=== PATIENT | male | born 1990 | race Caucasian/White ===

== ENCOUNTER 2024-09-04 14:51 | Emergency (ER) | payer OTHER, BC, SELFPAY ==
--- NOTE | 2024-09-04 15:00 | ED.GENADULT ---
HPI - General Adult General Chief complaint: Burn/Smoke Inhalation Stated complaint: Burn on Right Arm Time Seen by Provider: 09/04/24 15:02 Source: patient Mode of arrival: ambulatory Limitations: no limitations History of Present Illness HPI narrative: 34 y/o male presented for c/o redness and warmth surrounding a burn which he sustained to the right wrist 3 days ago. States he burned the wrist on a hot piece of metal at work. He cleansed the site after work. Yesterday the blister ruptured and he has since removed the extra skin. Unsure of last tetanus. Denies decreased ROM, numbness, tingling or weakness to the hand. Related Data Allergies Allergy/AdvReac Type Severity Reaction Status Date / Time No Known Allergies Allergy Verified 09/04/24 15:06 Review of Systems Review of Systems: CONSTITUTIONAL: Denies body aches, fever, chills, or sweats. EYES: Denies visual changes, redness, or discharge. ENT: Denies rhinorrhea, congestion CARDIOVASCULAR: Denies chest pain, palpitations, or edema. RESPIRATORY: Denies cough or dyspnea. SKIN: reports burn right wrist MUSCULOSKELETAL: Denies back pain, joint pain, or myalgia. NEUROLOGIC: Denies numbness, tingling, or weakness. PMFSH Comments At time of signature, I have reviewed and agree with nursing past medical, surgical, social and family history unless otherwise noted. Please see nursing chart for further information. There is no relevant family history pertinent to the presenting complaint Exam Narrative: GENERAL: Well-appearing ENT: Mucous membranes moist. Oropharynx without edema, erythema or lesions. NECK: Supple. No lymphadenopathy CHEST: Clear to auscultation. HEART: Regular rate and rhythm. SKIN: Warm, dry. Right wrist volar aspect with 2cm x0.5cm wound c/w reported burn, wound bed yellow in color, dry no drainage, mild surrounding erythema, warmth, and mild swelling extending 7cm. CMS intact. NEURO: Alert and oriented x3. Course Course Emergency Course: Patient is aware of diagnosis, understands and agrees to treatment plan. Anticipatory guidance given. Patient agrees to follow-up as directed and is aware of reasons to seek care at the emergency department. Portions of this record may have been created with voice recognition software Level of Care: Express Care Visit Vital Signs Vital signs: Reviewed Medical Decision Making MDM Narrative Medical decision making narrative: Discussed physical exam findings, mild cellulitis surrounding the burn to right volar wrist. Rx abx Tetanus updated today. Advised supportive measures and signs/symptoms to go to the ER. Pt is appropriate for outpt treatment and f/u. Differential Diagnosis Differential Diagnosis: Burn, cellulitis, abrasion, avulsion Discharge Plan Discharge Clinical Impression: Cellulitis Patient Disposition: Home, Self-Care Condition: Stable Instructions: Antibiotic Form, Cellulitis (ED) Additional Instructions: Keep the area clean and dry - cleanse with warm water and mild soap and allow to fully dry. Ok to apply neosporin to the site Keep it open to air (no bandages unless draining). Tetanus updated today Take the antibiotic as directed. Watch for worsening symptoms including pain, redness, swelling, streaking, pus/drainage, fever. Go to the ER with any of these symptoms or concerns. Follow up with primary care provider in 1 week for wound re-check Patient Language: Georgian Prescriptions: New cephalexin 500 mg capsule 500 mg PO Q8H 7 Days Qty: 21 0RF Follow-up/Referrals: PHYSICIAN,DIRECTOR OF PRODUCT DESIGN [Primary Care Provider] - Time of Disposition: 15:16
[2024-09-04 15:04] VITALS: BP 143/95; PULSE 83; RESP 16; TEMP 36.1; O2SAT 98
[2024-09-04] MEDS: TETANUS,DIPHTHERIA,AC PERTUSSIS ADULT (0.5 ML) BOOSTRIX IM (15:14)
--- OUTSIDE RECORDS SUMMARY | 2024-09-04 16:10 | XMS_ITS | Encounter Summary ---
Author Organization [facility] Address [address] [place] [address] Care Team Providers Care Car Sander Name Role Phone Nikolay Lockhart MD Primary Care Provider + [phone] Vanessa Myers MD Primary Care Provider Nikolay Lockhart MD Primary Care Provider + [phone] Encounter Details Date Type Department Care Team (Late Contact Info) Description 09/10/1992 Historical Encounter Global Cj Rufino Social History Tobacco Use Types Packs/Day Years Used Date Smoking Tobacco: Never Assessed Sex and Gender Information Value Date Recorded Sex Assigned at Not on file Gender Identity Not on file Sexual Orientation Not on file documented as of this encounter Plan of Treatment Not on file documented as of this encounter Visit Diagnoses Not on filedocumented in this encounter Additional Health Concerns Infection Onset Date Last Indicated Resolved Time MRSA 05/18/2012 05/18/2012 Covid-19 (rule out) 03/06/2021 03/06/2021 03/06/20 21 5:16 AM EDT Covid-19 (confirmed) 03/06/2021 03/06/2021 021 10:12 PM EST documented as of this encounter Care Teams Car Sander Relationship Specialty Start Date End Date Nikolay Lockhart MD [address] [place] [address] PCP - General Family Medicine 11/27/10 05/15/12 Vanessa Myers MD [address] [place] [phone] (Work) PCP - General Infectious Diseases 05/16/12 07/17/12 Nikolay Lockhart MD [address] [place] [address] PCP - General Family Medicine 07/18/12 documented as of this encounter
--- OUTSIDE RECORDS SUMMARY | 2024-09-04 16:10 | XMS_ITS | Encounter Summary ---
Author Organization [facility] Address [address] [facility] [address] [place] [address] Care Team Providers Care Brazer Furnace Name Role Phone Nikolay Lockhart MD Primary Care Provider + [phone] Vanessa Myers MD Primary Care Provider Nikolay Lockhart MD Primary Care Provider + [phone] Encounter Details Date Type Department Care Team (Late Contact Info) Description 11/01/2004 Historical Encounter Global Romulo Emanuel MD Social History Tobacco Use Types Packs/Day Years [...] documented as of this encounter Care Teams Brazer Furnace Relationship Specialty Start Date End Date Nikolay Lockhart MD [address] [place] [address] [place] [address] PCP - General Family Medicine 11/27/10 05/15/12 Vanessa Myers MD [address] [place] [address] PCP - General Infectious Diseases 05/16/12 07/17/12 Nikolay Lockhart MD [address] [facility] [place] [address] PCP - General Family Medicine 07/18/12 documented as of this encounter
--- OUTSIDE RECORDS SUMMARY | 2024-09-04 16:10 | XMS_ITS | Encounter Summary ---
Author Organization [facility] Address [address] [place] [address] Care Team Providers Care Scientific Specialist Name Role Phone Nikolay Lockhart MD Primary Care Provider [phone] Reason for Visit * Reason Onset Date Comments Referral Status 08/14/2012 Encounter Details Date Type Department Care Team (Late st Contact Info) Description 08/14/2012 Telephone [facility] [address] [place] [address] Debra Avendano LPN Referral Status Social History Tobacco Use Types Packs/Day Years Used Date Smoking Tobacco: Every Day Cigarettes Smokeless Tobacco: Current Snuff Alcohol Use Standard Drinks/Week Comments Yes 0 (1 standard drink = 0.6 oz pur e alcohol) Sex and Gender Information Value Date Recorded Sex Assigned at Not on file Gender Identity Not on file Sexual Orientation Not on file documented as of this encounter Miscellaneous Notes * Telephone Encounter - Debra Avendano - 08/14/2012 1:31 PM EST Spoke with Dr. Myers's office. Pt. Has a follow up scheduled for September. Design Release Engineer said she would have Dr. Myers look at Bone scan and see if she wanted to do anything different. Patient's motherinformed of information. Will call back tomorrow to see if appt. Has been moved up. documented in this encounter Plan of Treatment Not on file documented as of this encounter Visit Diagnoses Not on filedocumented in this encounter Additional Health Concerns Infection Onset Date Last Indicated Resolved Time MRSA 05/18/2012 05/18/2012 Covid-19 (rule out) 03/06/2021 03/06/2021 03/06/20 21 5:16 AM EDT Covid-19 (confirmed) 03/06/2021 03/06/2021 021 10:12 PM EST documented as of this encounter Care Teams Scientific Specialist Relationship Specialty Start Date End Date Nikolay Lockhart MD [address] [place], [place] [id number] PCP - General Family Medicine 07/18/12 documented as of this encounter
--- OUTSIDE RECORDS SUMMARY | 2024-09-04 16:10 | XMS_ITS | Encounter Summary ---
Author Organization [facility] Address [address] [place] [address] Care Team Providers Care Wood Floor Refinisher Name Role Phone Vanessa Myers MD Primary Care Provider [phone] Nikolay Lockhart MD Primary Care Provider [phone] Encounter Details Date Type Department Care Team (Late st Contact Info) Description 06/27/[address] [facility], [facility] [address] [facility] [address] [place] [address] Nellie Smith MA Social History Tobacco Use Types Packs/Day Years [...] encounter Miscellaneous Notes * Telephone Encounter - Nellie Smith - 06/27/2012 1:03 PM EST Left message for patient to inform him he has an appointment with Dr. Pond for tomorrow at 10:55am. documented in this encounter Plan of Treatment Not on file documented as of this encounter Visit Diagnoses Not on filedocumented in this encounter Additional Health Concerns Infection Onset Date Last Indicated Resolved Time MRSA 05/18/2012 05/18/2012 Covid-19 (rule out) 03/06/2021 03/06/2021 03/06/20 21 5:16 AM EDT Covid-19 (confirmed) 03/06/2021 03/06/2021 021 10:12 PM EST documented as of this encounter Care Teams Wood Floor Refinisher Relationship Specialty Start Date End Date Vanessa Myers MD [address] [place] [address] PCP - General Infectious Diseases 05/16/12 07/17/12 Nikolay Lockhart MD [address] [place] [address] PCP - General Family Medicine 07/18/12 documented as of this encounter
--- OUTSIDE RECORDS SUMMARY | 2024-09-04 16:10 | XMS_ITS | Encounter Summary ---
Author Organization [facility] Address [address] [place] [address] Care Team Providers Care Pinsetter Mechanic Automatic Name Role Phone Nikolay Mendiola MD Primary Care Provider [phone] Reason for Visit * Reason Onset Date Comments Phone Advice For Symptoms 03/01/2021 Encounter Details Date Type Department Care Team (Late st Contact Info) Description 03/01/2021 Telephone NIKOLAY MENDIOLA MD [facility] [address] [place] [address] Clint Salinas MA Phone Advice For Symptoms Social History Tobacco Use Types Packs/Day Years Used Date Smoking Tobacco: Former Cigarettes Smokeless Tobacco: Current Snuff, Chew Comments:i can/day x 5 years Alcohol Use Standard Drinks/Week Comments Yes 360 (1 standard drink = 0.6 oz p ure alcohol) once a week Sex and Gender Information Value Date Recorded Sex Assigned at Not on file Gender Identity Not on file Sexual Orientation Not on file documented as of this encounter Miscellaneous Notes * Telephone Encounter - Clint Salinas MA - 03/01/2021 3:58 PM EDT Patients mother informed. * Telephone Encounter - Clint Salinas MA - 03/01/2021 3:31 PM EDT Patients mom called in stating Reginald has been sick for a couple days not with coughing, sore throat, vomiting, SOB. Patient is in [place] working and is asking for something to be sent in to [facility]. documented in this encounter Plan of Treatment Not on file documented as of this encounter Visit Diagnoses Diagnosis Lab test positive for detection of COVID-19 virus- Primary Acute sinusitis, recurrence not specified, unspecified location documented in this encounter Additional Health Concerns Infection Onset Date Last Indicated Resolved Time MRSA 05/18/2012 05/18/2012 Covid-19 (rule out) 03/06/2021 03/06/2021 03/06/20 21 5:16 AM EDT Covid-19 (confirmed) 03/06/2021 03/06/2021 021 10:12 PM EST documented as of this encounter Care Teams Pinsetter Mechanic Automatic Relationship Specialty Start Date End Date Nikolay Mendiola MD [address] [facility] [place] [address] PCP - General Family Medicine 07/18/12 documented as of this encounter
--- OUTSIDE RECORDS SUMMARY | 2024-09-04 16:10 | XMS_ITS | Encounter Summary ---
Author Organization [facility] Address [address] [place] [address] Care Team Providers Care Investment Broker Name Role Phone Nikolay Lockhart MD Primary Care Provider [phone] Reason for Visit * Reason Onset Date Comments Shoulder Pain 08/10/2012 Encounter Details Date Type Department Care Team (Late st Contact Info) Description 08/10/2012 Telephone [facility] [address] [place] [address] Nikolay Lockhart MD [address] [facility] [place] [address] Shoulder Pain Social History Tobacco Use Types Packs/Day Years [...] on file documented as of this encounter Results * NM Bone Scan 3 Phase (08/10/2012 1:52 PM EST) Anatomical Region Laterality Modality NM 08/10/2012 1:53 PM EST Addenda Addendum by Peri Tobias on 08/14/2012 9:50 AM EST Addendum: Addendum to verify receipt of document. Receipt of report was confirmed by Patricia at the office of Dr. Lockhart at approximately 9:47 a.m. on 08/13/2012. Patricia informed to give report to the doctor. llc Addendum by Peri Tobias on 08/11/2012 8:35 AM EST Addendum: Addendum to verify receipt of document. Report was sent to the office of Dr. Lockhart at approximately 8:31 a.m. on 08/11/2012. Receipt will be confirmed on the next day. llc Impressions 08/11/2012 8:44 AM EST : Positive 3 phase bone scan right shoulder as described. Narrative 08/11/2012 8:44 AM EST Shoulder injury which resulted in shoulder surgery January 15, 2012. Pins removed and 2 weeks later infection. History of MRSA right shoulder. COMPARISON: None TECHNIQUE: 24.7 mCi of TECH 99m HDP given IV. Anterior flow images obtained of upper chest/right shoulder. Blood pool and static delayed 4 views obtained of the upper chest/right shoulder. Left arm injection. FINDINGS: Flow images demonstrate subtle increased activity/avidity right shoulder compared with left shoulder. Blood pool images show increased activity/avidity associated with right shoulder compared with left. Static delayed images demonstrate focus of increased activity/avidity noted within distal right clavicle/acromium, right humeral head and right glenoid fossa. Procedure Note Peri Tobias - 08/14/2012 Shoulder injury which resulted in shoulder surgery January 15, 2012. Pinsremoved and 2 weeks later infection. History of MRSA right shoulder. COMPARISON: None TECHNIQUE: 24.7 mCi of TECH 99m HDP given IV. Anterior flow imagesobtained of upper chest/right shoulder. Blood pool and static delayed 4 viewsobtained of the upper chest/right shoulder. Left arm injection. FINDINGS: Flow images demonstrate subtle increased activity/avidity rightshoulder compared with left shoulder. Blood pool images show increasedactivity/avidity associated with right shoulder compared with left. Static delayed images demonstrate focus of increased activity/avidity noted within distalright clavicle/acromium, right humeral head and right glenoid fossa. IMPRESSION: Positive 3 phase bone scan right shoulder as described. Nikolay Lockhart MD IMG NM ORDERABLES documented in this encounter Visit Diagnoses Diagnosis Cellulitis and abscess of upper arm and forearm- Primary documented in this encounter Additional Health Concerns Infection Onset Date Last Indicated Resolved Time MRSA 05/18/2012 05/18/2012 Covid-19 (rule out) 03/06/2021 03/06/2021 03/06/20 21 5:16 AM EDT Covid-19 (confirmed) 03/06/2021 03/06/2021 021 10:12 PM EST documented as of this encounter Care Teams Investment Broker Relationship Specialty Start Date End Date Nikolay Lockhart MD [address] [facility] [place] [address] PCP - General Family Medicine 07/18/12 documented as of this encounter
--- OUTSIDE RECORDS SUMMARY | 2024-09-04 16:10 | XMS_ITS | Encounter Summary ---
Author Organization [facility] Address [address] [place] [address] Care Team Providers Care Client Technical Specialist Name Role Phone Vanessa Myers MD Primary Care Provider Nikolay Lockhart MD Primary Care Provider [phone] Encounter Details Date Type Department Care Team (Late st Contact Info) Description 06/14/2012 Telephone [facility], [facility] [address] [facility] [address] [place] [address] Nellie Smith MA Social History [...] * Telephone Encounter - Nellie Smith - 06/14/2012 2:14 PM EST Let patient know that refill was sent to the pharmacy and to keep his appointment next week to discuss further treatment/refills. * Telephone Encounter - Laura King NP - 06/14/2012 1:58 PM EST Refill sent to pharmacy. He will need to keep appt next Wed to discuss further treatment/refills. * Telephone Encounter - Nellie Smith - 06/14/2012 1:48 PM EST Patient states he is getting low on Bactrim and wants a refill sent to [facility]. documented in this encounter Plan of Treatment Not on file documented as of this encounter Visit Diagnoses Not on filedocumented in this encounter Additional Health Concerns Infection Onset Date Last Indicated Resolved Time MRSA 05/18/2012 05/18/2012 Covid-19 (rule out) 03/06/2021 03/06/2021 03/06/20 21 5:16 AM EDT Covid-19 (confirmed) 03/06/2021 03/06/2021 021 10:12 PM EST documented as of this encounter Care Teams Client Technical Specialist Relationship Specialty Start Date End Date Vanessa Myers MD [address] [place] [address] PCP - General Infectious Diseases 05/16/12 07/17/12 Nikolay Lockhart MD [address] [facility] [place] [address] PCP - General Family Medicine 07/18/12 documented as of this encounter
--- OUTSIDE RECORDS SUMMARY | 2024-09-04 16:10 | XMS_ITS | Encounter Summary ---
Author Organization [facility] Address [address] [place] [address] Care Team Providers Care Engine Cleaner Name Role Phone Vanessa Myers MD Primary Care Provider Nikolay Lockhart MD Primary Care Provider [phone] Encounter Details Date Type Department Care Team (Late st Contact Info) Description 06/01/2012 Telephone [facility], [facility] [address] [facility] [address] [place] [address] Nellie Smith MA Social History [...] * Telephone Encounter - Nellie Smith - 06/01/2012 2:47 PM EST Notified patient refill for Bactrim was sent to the pharmacy. * Telephone Encounter - Laura King NP - 06/01/2012 12:28 PM EST Refill sent to pharmacy. If fever, chills or worsening of symptoms, will need to go to ER. * Telephone Encounter - Nellie Smith - 06/01/2012 11:36 AM EST Patient is requesting a refill on bactrim to be sent [facility]. documented in this encounter Plan of Treatment Not on file documented as of this encounter Visit Diagnoses Not on filedocumented in this encounter Additional Health Concerns Infection Onset Date Last Indicated Resolved Time MRSA 05/18/2012 05/18/2012 Covid-19 (rule out) 03/06/2021 03/06/2021 03/06/20 21 5:16 AM EDT Covid-19 (confirmed) 03/06/2021 03/06/2021 021 10:12 PM EST documented as of this encounter Care Teams Engine Cleaner Relationship Specialty Start Date End Date Vanessa Myers MD [address] [place] [id number] PCP - General Infectious Diseases 05/16/12 07/17/12 Nikolay Lockhart MD [address] [facility] [place] [address] PCP - General Family Medicine 07/18/12 documented as of this encounter
--- OUTSIDE RECORDS SUMMARY | 2024-09-04 16:10 | XMS_ITS | Encounter Summary ---
Author Organization [facility] Address [address] [place] [address] Care Team Providers Care Tender Coordinator Name Role Phone Nikolay Lockhart MD Primary Care Provider + [phone] Vanessa Myers MD Primary Care Provider Nikolay Lockhart MD Primary Care Provider + [phone] Encounter Details Date Type Department Care Team (Late st Contact Info) Description 10/22/2004 Historical Encounter Global Donavan Hinton MD [facility] Emergency Dept. [address] [place], [place] [id number] Social History Tobacco Use Types Packs/Day Years [...] documented as of this encounter Care Teams Tender Coordinator Relationship Specialty Start Date End Date Nikolay Lockhart MD [address] [facility] [place] [address] PCP - General Family Medicine 11/27/10 05/15/12 Vanessa Myers MD [address] [place], [place] [address] PCP - General Infectious Diseases 05/16/12 07/17/12 Nikolay Lockhart MD [address] [facility] [place] [address] PCP - General Family Medicine 07/18/12 documented as of this encounter
--- OUTSIDE RECORDS SUMMARY | 2024-09-04 16:10 | XMS_ITS | Encounter Summary ---
Author Organization [facility] Address [address] [place] [address] Care Team Providers Care Tool Turret Lathe Set Up Operator Name Role Phone Nikolay Lockhart MD Primary Care Provider [phone] Reason for Visit * Reason Onset Date Comments Results - Test 07/30/2012 Encounter Details Date Type Department Care Team (Late st Contact Info) Description 07/30/2012 Telephone [facility] [address] [place] [address] Nikolay Lockhart MD [address] [facility] [place] [address] Results - Test Social History Tobacco Use Types Packs/Day Years [...] encounter Miscellaneous Notes * Telephone Encounter - Nikolay Lockhart - 07/30/2012 12:29 PM EST ordered * Telephone Encounter - Kia Anaya - 07/30/2012 9:31 AM EST Patient was under the impression our office was ordering some type of scan to check to see if the infection has gone to the bone. Please order in EPIC. He has been waiting since office visit here last Monday. Thanks documented in this encounter Plan of Treatment Not on file documented as of this encounter Visit Diagnoses Diagnosis Osteomyelitis of right shoulder region- Primary Unspecified osteomyelitis, shoulder region documented in this encounter Additional Health Concerns Infection Onset Date Last Indicated Resolved Time MRSA 05/18/2012 05/18/2012 Covid-19 (rule out) 03/06/2021 03/06/2021 03/06/20 21 5:16 AM EDT Covid-19 (confirmed) 03/06/2021 03/06/2021 021 10:12 PM EST documented as of this encounter Care Teams Tool Turret Lathe Set Up Operator Relationship Specialty Start Date End Date Nikolay Lockhart MD [address] [facility] [place] [address] PCP - General Family Medicine 07/18/12 documented as of this encounter
--- OUTSIDE RECORDS SUMMARY | 2024-09-04 16:11 | XMS_ITS | Data Portability ---
Author Organization [facility] [employer], [facility] hospital - New Address [address], [place] [address] Assessment No assessment recorded. Plan of Treatment Reminders Order Date Submit Date Provider Last Modified By Organization Details Last Modified Time Details Appointments None recorde d. Lab drug screen, urine 024 12/19/19 24 [email or web address] [employer], [id number], [place], [address], 4 09:46:44 Referral None recorde d. Procedures None recorde d. Surgeries None recorde d. Imaging None recorde d. Medication Orders None recorde d. Patient TargetsNo targets recorded. Patient InstructionsNo instructions recorded. Reason for Referral None Reported. Medical Equipment None Reported. Medications Name Sig Start Date Stop Date Status Note LastModified by Organization Details LastModified Time azithromycin 250 mg tablet USE DIRECTED active Not Available Not Available No t Available Vitals None Recorded Social History None recorded. Functional Status None recorded. Mental Status None recorded. Family History Nothing Reported. Medical History No medical history recorded. Past Encounters Encounter ID Performer Location Encounter Start Date Encounter Closed Date Diagnosis/Indication Diagnosis SNOMED-CT Code Diagnosis ICD10 Code Diagnosis Note [id number] MYRA Vance [address] [facility] [address] [place] [address] 12/19/2023 09:30:25 12/19/2023 10:36:01 Drug of abuse screen 94192164 Z02.83 Health Concerns Section Related Observation LastModified by Organization Detai ls LastModified Time None Recorded Concern Status LastModified by Organization Details LastModified Time None Recorded Advance Directives Directive None Recorded Payers Encounter Date Sequence Insurance Name Policy Number Policy Patrick Covered Member ID Patrick Member ID Guarantor Name 12/19/2023 [facility] [id number] Reginald Nash
--- OUTSIDE RECORDS SUMMARY | 2024-09-04 16:11 | XMS_ITS | Encounter Summary ---
Author Organization [facility] Address [address] [id number] Care Team Providers Care Putter In Name Role Phone Nikolay Mendiola MD Primary Care Provider [phone] Encounter Details Date Type Department Care Team (Late st Contact Info) Description 07/08/2015 Telephone NIKOLAY MENDIOLA MD [facility] [address] [place] [address] Dorothy Jay MA [address] [id number] Social History Tobacco Use Types Packs/Day Years Used Date Smoking Tobacco: Former Cigarettes 0.2 5 Smokeless Tobacco: Current Snuff, Chew Comments:i can/day x 5 years Alcohol Use Standard Drinks/Week Comments Yes 360 (1 standard drink = 0.6 oz p ure alcohol) once a week Sex and Gender Information Value Date Recorded Sex Assigned at Not on file Gender Identity Not on file Sexual Orientation Not on file documented as of this encounter Miscellaneous Notes * Telephone Encounter - Dorothy Jay MA - 07/08/2015 11:26 AM EST Pt mother calling requesting rx called to pharmacy d/t pt having left ear pain, sore throat, loss of appetite, fatigue and drainage. documented in this encounter Plan of Treatment Not on file documented as of this encounter Visit Diagnoses Diagnosis Acute sinusitis, recurrence not specified, unspecified location- Primary documented in this encounter Additional Health Concerns Infection Onset Date Last Indicated Resolved Time MRSA 05/18/2012 05/18/2012 Covid-19 (rule out) 03/06/2021 03/06/2021 03/06/20 21 5:16 AM EDT Covid-19 (confirmed) 03/06/2021 03/06/2021 021 10:12 PM EST documented as of this encounter Care Teams Putter In Relationship Specialty Start Date End Date Nikolay Mendiola MD [address] [facility] [place] [address] PCP - General Family Medicine 07/18/12 documented as of this encounter
--- OUTSIDE RECORDS SUMMARY | 2024-09-04 16:11 | XMS_ITS | Encounter Summary ---
Author Organization [facility] Address [address] [place] [address] Care Team Providers Care Telephone Station Repairer Name Role Phone Nikolay Lockhart MD Primary Care Provider Encounter Details Date Type Department Care Team (Late st Contact Info) Description 10/21/2022 Telephone [facility] [address] [place] [address] Carlota Magallon CRT Social History Tobacco Use Types Packs/Day Years Used Date Smoking Tobacco: Former Cigarettes Smokeless Tobacco: Current Snuff, Chew Comments:i can/day x 5 years Alcohol Use Standard Drinks/Week Comments Not Currently 360 (1 standard drink = 0.6 oz p ure alcohol) once a week Sex and Gender Information Value Date Recorded Sex Assigned at Not on file Gender Identity Not on file Sexual Orientation Not on file documented as of this encounter Miscellaneous Notes * Telephone Encounter - Carlota Magallon CRT - 10/21/2022 9:25 AM EDT Called and spoke with patient about the return of his home sleep study equipment. Patient states that he is going to do the test tonight and return tomorrow. documented in this encounter Plan of Treatment Not on file documented as of this encounter Visit Diagnoses Not on filedocumented in this encounter Additional Health Concerns Infection Onset Date Last Indicated Resolved Time MRSA 05/18/2012 05/18/2012 documented as of this encounter Care Teams Telephone Station Repairer Relationship Specialty Start Date End Date Nikolay Lockhart MD [address] [place] [address] PCP - General Family Medicine 07/18/12 documented as of this encounter
--- OUTSIDE RECORDS SUMMARY | 2024-09-04 16:11 | XMS_ITS | Encounter Summary ---
Author Organization [facility] Address [address] [place] [address] Care Team Providers Care Salesperson Terrazzo Tiles Name Role Phone Nikolay Lockhart MD Primary Care Provider [phone] Reason for Visit * Reason Onset Date Comments Sinusitis 10/24/2012 Encounter Details Date Type Department Care Team (Late st Contact Info) Description 10/24/2012 Telephone [facility] [address] [place] [address] Nikolay Lockhart MD [address] [facility] [place] [address] Sinusitis Social History Tobacco Use Types Packs/Day Years [...] encounter Miscellaneous Notes * Telephone Encounter - Kia Anaya - 10/24/2012 10:26 AM EDT Patient requesting medicine for his sinus and allergies. Very congested in head and a lot of sinus drainage ( yellowish). Nothing OTC helping. documented in this encounter Plan of Treatment Not on file documented as of this encounter Visit Diagnoses Diagnosis Sinusitis- Primary Unspecified sinusitis (chronic) documented in this encounter Additional Health Concerns Infection Onset Date Last Indicated Resolved Time MRSA 05/18/2012 05/18/2012 Covid-19 (rule out) 03/06/2021 03/06/2021 03/06/20 21 5:16 AM EDT Covid-19 (confirmed) 03/06/2021 03/06/2021 021 10:12 PM EST documented as of this encounter Care Teams Salesperson Terrazzo Tiles Relationship Specialty Start Date End Date Nikolay Lockhart MD [address] [place] [address] PCP - General Family Medicine 07/18/12 documented as of this encounter
--- OUTSIDE RECORDS SUMMARY | 2024-09-04 16:11 | XMS_ITS | Encounter Summary ---
Author Organization [facility] Address [address] [place] [address] Care Team Providers Care Press Cleaner Name Role Phone Nikolay Lockhart MD Primary Care Provider Encounter Details Date Type Department Care Team (Late st Contact Info) Description 11/14/2012 Orders Only [facility], [facility] [address] [facility] [address] [place] [id number] Vanessa Myers MD [address] [place] [address] MRSA (methicillin resistant Staphylococcus aureus) infection (Primary Dx) Social History Tobacco Use Types Packs/Day Years [...] as of this encounter Visit Diagnoses Diagnosis MRSA (methicillin resistant Staphylococcus aureus) infection- Primary Methicillin resistant Staphylococcus aureus in conditions classified elsewhere and of unspecified site documented in this encounter Additional Health Concerns Infection Onset Date Last Indicated Resolved Time MRSA 05/18/2012 05/18/2012 Covid-19 (rule out) 03/06/2021 03/06/2021 03/06/20 21 5:16 AM EDT Covid-19 (confirmed) 03/06/2021 03/06/2021 021 10:12 PM EST documented as of this encounter Care Teams Press Cleaner Relationship Specialty Start Date End Date Nikolay Lockhart MD [address] [place] [address] PCP - General Family Medicine 07/18/12 documented as of this encounter
--- OUTSIDE RECORDS SUMMARY | 2024-09-04 16:11 | XMS_ITS | Encounter Summary ---
Author Organization [facility] Address [address] [place] [address] Care Team Providers Care Facility Examiner Name Role Phone Nikolay Mendiola MD Primary Care Provider Reason for Visit * Reason Onset Date Comments Medications Refill 10/21/2014 Encounter Details Date Type Department Care Team ([facility] Contact Info) Description 10/21/2014 Telephone NIKOLAY MENDIOLA MD [facility] [address] [place] [address] Norma Caal Medications Refill Social History Tobacco Use Types Packs/Day Years [...] documented as of this encounter Care Teams Facility Examiner Relationship Specialty Start Date End Date Nikolay Mendiola MD [address] [facility] [place] [address] PCP - General Family Medicine 07/18/12 documented as of this encounter
--- OUTSIDE RECORDS SUMMARY | 2024-09-04 16:11 | XMS_ITS | Encounter Summary ---
Author Organization [facility] Address [address] [place] [address] Care Team Providers Care Paperboard Box Maker Name Role Phone Nikolay Lockhart MD Primary Care Provider [phone] Reason for Visit * Reason Onset Date Comments Wound Infection 12/05/2012 Encounter Details Date Type Department Care Team (Late st Contact Info) Description 12/05/2012 Telephone [facility] [address] [place] [address] Nikolay Lockhart MD [address] [place] [address] Wound Infection Social History Tobacco Use Types Packs/Day Years [...] * Telephone Encounter - Nikolay Lockhart - 12/05/2012 4:32 PM EDT Thank you * Telephone Encounter - Kia Anaya - 12/05/2012 4:15 PM EDT Patient saw Dr Pond and 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 Mother wanted to make you aware. documented in this encounter Plan of Treatment Not on file documented as of this encounter Visit Diagnoses Not on filedocumented in this encounter Additional Health Concerns Infection Onset Date Last Indicated Resolved Time MRSA 05/18/2012 05/18/2012 Covid-19 (rule out) 03/06/2021 03/06/2021 03/06/20 21 5:16 AM EDT Covid-19 (confirmed) 03/06/2021 03/06/2021 021 10:12 PM EST documented as of this encounter Care Teams Paperboard Box Maker Relationship Specialty Start Date End Date Nikolay Lockhart MD [address] [place] [address] PCP - General Family Medicine 07/18/12 documented as of this encounter
--- OUTSIDE RECORDS SUMMARY | 2024-09-04 16:11 | XMS_ITS | Encounter Summary ---
Author Organization [facility] Address [address] [place] [address] Care Team Providers Care Project Geophysicist Name Role Phone Nikolay Lockhart MD Primary Care Provider Encounter Details Date Type Department Care Team (Late st Contact Info) Description 08/16/2012 Telephone [facility], [facility] [address] [facility] [address] [place] [address] Nellie Smith MA Social History [...] * Telephone Encounter - Nellie Smith - 08/16/2012 11:13 AM EST Notified patient's mother appointment at [facility] is for August 20 at 9:55am, also let her know they need actual films of MRI. documented in this encounter Plan of Treatment Not on file documented as of this encounter Visit Diagnoses Not on filedocumented in this encounter Additional Health Concerns Infection Onset Date Last Indicated Resolved Time MRSA 05/18/2012 05/18/2012 Covid-19 (rule out) 03/06/2021 03/06/2021 03/06/20 21 5:16 AM EDT Covid-19 (confirmed) 03/06/2021 03/06/2021 021 10:12 PM EST documented as of this encounter Care Teams Project Geophysicist Relationship Specialty Start Date End Date Nikolay Lockhart MD [address] [facility] [place] [address] PCP - General Family Medicine 07/18/12 documented as of this encounter
--- OUTSIDE RECORDS SUMMARY | 2024-09-04 16:11 | XMS_ITS | Encounter Summary ---
Author Organization [facility] Address [address] [place] [address] Care Team Providers Care Lead Systems Developer Name Role Phone Nikolay Lockhart MD Primary Care Provider Reason for Visit * Reason Onset Date Comments Phone Advice For Symptoms 08/21/2012 Encounter Details Date Type Department Care Team (Late st Contact Info) Description 08/21/2012 Telephone [facility] [address] [place] [address] Nikolay Lockhart MD [address] [facility] [place] [address] Phone Advice For Symptoms Social History Tobacco [...] * Telephone Encounter - Nikolay Lockhart - 08/22/2012 12:41 PM EDT OK * Telephone Encounter - Kia Anaya - 08/21/2012 3:09 PM EDT Patient saw Dr Salas at [facility] yesterday and he instructed patient to proceed with surgery with Dr Pond. He explained the procedure in detail and answered all of their questions. Wanting to know if that was ok with Dr Lockhart? documented in this encounter Plan of Treatment Not on file documented as of this encounter Visit Diagnoses Not on filedocumented in this encounter Additional Health Concerns Infection Onset Date Last Indicated Resolved Time MRSA 05/18/2012 05/18/2012 Covid-19 (rule out) 03/06/2021 03/06/2021 03/06/20 21 5:16 AM EDT Covid-19 (confirmed) 03/06/2021 03/06/2021 021 10:12 PM EST documented as of this encounter Care Teams Lead Systems Developer Relationship Specialty Start Date End Date Nikolay Lockhart MD [address] [facility] [address] [place] [address] PCP - General Family Medicine 07/18/12 documented as of this encounter
--- OUTSIDE RECORDS SUMMARY | 2024-09-04 16:11 | XMS_ITS | Encounter Summary ---
Author Organization [facility] Address [address] [facility] [place] [address] Care Team Providers Care Space And Missile Operations Spacelift Name Role Phone Nikolay Lockhart MD Primary Care Provider [phone] Vanessa Myers MD Primary Care Provider [phone] Nikolay Lockhart MD Primary Care Provider + [phone] Encounter Details Date Type Department Care Team ([facility] Contact Info) Description 08/30/1993 Historical Encounter [employer] Rufino Corona Social History Tobacco Use Types Packs/Day Years [...] documented as of this encounter Care Teams Space And Missile Operations Spacelift Relationship Specialty Start Date End Date Nikolay Lockhart MD [address] [facility] [place] [address] PCP - General Family Medicine 11/27/10 05/15/12 Vanessa Myers MD [address] [place] [phone] (Work) PCP - General Infectious Diseases 05/16/12 07/17/12 Nikolay Lockhart MD [address] [facility] [place] [address] PCP - General Family Medicine 07/18/12 documented as of this encounter
--- OUTSIDE RECORDS SUMMARY | 2024-09-04 16:11 | XMS_ITS | Encounter Summary ---
Author Organization [facility] Address [address] [place] [address] Care Team Providers Care Surgical Scrub Tech Name Role Phone Nikolay Mendiola MD Primary Care Provider [phone] Reason for Visit * Reason Onset Date Comments Cold 03/12/2015 Encounter Details Date Type Department Care Team (Late st Contact Info) Description 03/12/2015 Telephone NIKOLAY MENDIOLA MD [facility] [address] [place] [address] Nikolay Mendiola MD [address] [facility] [place] [address] Cold Social History Tobacco Use Types Packs/Day Years [...] encounter Miscellaneous Notes * Telephone Encounter - Shwetha Gee - 03/12/2015 10:19 AM EDT Pt is requesting rx called in d/t uri,symptoms include yellow mucous, congestion, ear pain and coughing. 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
--- OUTSIDE RECORDS SUMMARY | 2024-09-04 16:11 | XMS_ITS | Encounter Summary ---
Author Organization [facility] Address [address] [id number] Care Team Providers Care Bioassayist Name Role Phone Nikolay Mendiola MD Primary Care Provider [phone] Encounter Details Date Type Department Care Team (Late st Contact Info) Description 07/12/2019 Telephone NIKOLAY MENDIOLA MD [facility] [address] [place] [address] Nalini Hull MA [address] [id number] Social History Tobacco Use Types Packs/Day Years [...] encounter Miscellaneous Notes * Telephone Encounter - Nalini Hull MA - 07/12/2019 9:45 AM EST Pt stated he thinks he has pink eye D/T His Daughter was diagnosed with it. Pt would like somethingcalled in to treat this. Both Eyes are getting infected. documented in this encounter Plan of Treatment Not on file documented as of this encounter Visit Diagnoses Diagnosis [place] eye disease of both eyes- Primary documented in this encounter Additional Health Concerns Infection Onset Date Last Indicated Resolved Time MRSA 05/18/2012 05/18/2012 Covid-19 (rule out) 03/06/2021 03/06/2021 03/06/20 21 5:16 AM EDT Covid-19 (confirmed) 03/06/2021 03/06/2021 021 10:12 PM EST documented as of this encounter Care Teams Bioassayist Relationship Specialty Start Date End Date Nikolay Mendiola MD [address] [facility] [place] [address] PCP - General Family Medicine 07/18/12 documented as of this encounter
--- OUTSIDE RECORDS SUMMARY | 2024-09-04 16:11 | XMS_ITS | Encounter Summary ---
Author Organization [facility] Address [address] [place] [address] Care Team Providers Care Carbonation Equipment Operator Name Role Phone Nikolay Lockhart MD Primary Care Provider Reason for Visit * Reason Onset Date Comments Shoulder Injury 01/08/2013 Encounter Details Date Type Department Care Team (Late st Contact Info) Description 01/08/2013 Telephone [facility] [address] [place] [address] Nikolay Lockhart MD [address] [facility] [place] [address] Shoulder Injury Social History Tobacco Use Types Packs/Day Years [...] * Telephone Encounter - Kia Anaya - 01/08/2013 10:13 AM EDT Patient wanted to let you know he is scheduled for surgery next with Dr Briseno. Dr Briseno stated the infection is not all the way into the joint and she will remove quite a bit of bone but his progress looks very promising. documented in this encounter Plan of Treatment Not on file documented as of this encounter Visit Diagnoses Not on filedocumented in this encounter Additional Health Concerns Infection Onset Date Last Indicated Resolved Time MRSA 05/18/2012 05/18/2012 Covid-19 (rule out) 03/06/2021 03/06/2021 03/06/20 21 5:16 AM EDT Covid-19 (confirmed) 03/06/2021 03/06/2021 021 10:12 PM EST documented as of this encounter Care Teams Carbonation Equipment Operator Relationship Specialty Start Date End Date Nikolay Lockhart MD [address] [facility] [place] [address] PCP - General Family Medicine 07/18/12 documented as of this encounter
--- OUTSIDE RECORDS SUMMARY | 2024-09-04 16:11 | XMS_ITS | Encounter Summary ---
Author Organization [facility] Address [address] [place] [address] Care Team Providers Care Lean Six Sigma Black Belt Name Role Phone Nikolay Lockhart MD Primary Care Provider Reason for Visit * Reason Onset Date Comments Sinusitis 08/17/2012 Encounter Details Date Type Department Care Team (Late st Contact Info) Description 08/17/2012 Telephone [facility] [address] [place] [address] Nikolay Lockhart MD [address] [facility] [address] Sinusitis Social History Tobacco Use [...] * Telephone Encounter - Kia Anaya - 08/17/2012 10:53 AM EST Patient is on Bactrim for his infection but has developed horrible congestion in head and a lot of sinus drainage. Please call something in to help. documented in this encounter Plan of Treatment Not on file documented as of this encounter Visit Diagnoses Diagnosis AR (allergic rhinitis)- Primary Allergic rhinitis, cause unspecified documented in this encounter Additional Health Concerns Infection Onset Date Last Indicated Resolved Time MRSA 05/18/2012 05/18/2012 Covid-19 (rule out) 03/06/2021 03/06/2021 03/06/20 21 5:16 AM EDT Covid-19 (confirmed) 03/06/2021 03/06/2021 021 10:12 PM EST documented as of this encounter Care Teams Lean Six Sigma Black Belt Relationship Specialty Start Date End Date Nikolay Lockhart MD [address] [facility] [address] PCP - General Family Medicine 07/18/12 documented as of this encounter
--- OUTSIDE RECORDS SUMMARY | 2024-09-04 16:11 | XMS_ITS | Encounter Summary ---
Author Organization [facility] Address [address] [place] [address] Care Team Providers Care Contract Management Specialist Name Role Phone Nikolay Lockhart MD Primary Care Provider Encounter Details Date Type Department Care Team (Late st Contact Info) Description 05/29/2013 Transcribe Orders Centralized Scheduling [address] [place] [address] Nikolay Lockhart MD [address] [facility] [place] [address] Social History Tobacco Use Types Packs/Day Years [...] documented as of this encounter Care Teams Contract Management Specialist Relationship Specialty Start Date End Date Nikolay Lockhart MD [address] [place] [address] PCP - General Family Medicine 07/18/12 documented as of this encounter
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
--- OUTSIDE RECORDS SUMMARY | 2024-09-04 16:11 | XMS_ITS | Encounter Summary ---
Author Organization [facility] Address [address] [place] [address] Care Team Providers Care Chart Writer Name Role Phone Nikolay Lockhart MD Primary Care Provider [phone] Encounter Details Date Type Department Care Team (Late st Contact Info) Description 10/26/2022 Telephone [facility] [address] [facility] [place] [address] Carlota Magallon CRT Social History [...] Telephone Encounter - Carlota Magallon CRT - 10/26/2022 4:36 PM EDT Called patient with a preliminary report on his home sleep study. documented in this encounter Plan of Treatment Not on file documented as of this encounter Visit Diagnoses Not on filedocumented in this encounter Additional Health Concerns Infection Onset Date Last Indicated Resolved Time MRSA 05/18/2012 05/18/2012 documented as of this encounter Care Teams Chart Writer Relationship Specialty Start Date End Date Nikolay Lockhart MD [address] [facility] [place] [address] PCP - General Family Medicine 07/18/12 documented as of this encounter
--- OUTSIDE RECORDS SUMMARY | 2024-09-04 16:11 | XMS_ITS | Clinical Summary ---
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 1/2 tab twice a day 30 Tablet 09/13/2022 Active Active Problems Problem Noted Date Diagnosed Date COVID-19 03/06/2021 Assessment & Plan (03/07/2021 1:07 PM EDT): Acute Hypoxic Respiratory Failure - due to COVID-19 Pneumonia. Low 90s on 2L NC. -continue remdesivir, day 2 -continue steroids, day 2 -continue nebulizers, supplements with vitamin C, D, Zinc. Encourage prone positioning as able. -wean FiO2 as tolerated, goal SpO2 92-95% Assessment & Plan (03/06/2021 6:55 AM EDT): New. Remdesivir, steroids, and supplements. Monitor Acute hypoxic respiratory failure: New. Oxygen support as needed. Monitor Acute respiratory failure with hypoxia Chewing tobacco nicotine dependence without comp lication 03/13/2020 MRSA (methicillin resistant Staphylococcus aureus) infection 04/02/2012 Injury of right shoulder 04/02/2012 Family History Medical History Relation Name Comments Hypertension Father Renal Disease Father Diabetes Maternal Grandmother Cancer Paternal Grandmother Diabetes Paternal Uncle Relation Name Status Comments Brother Alive Father Alive Maternal Grandmother Mother Alive Paternal Grandmother Paternal Uncle Social History Tobacco Use Types Packs/Day Years Used Date Smoking Tobacco: Former Cigarettes Smokeless Tobacco: Current Snuff, Chew Tobacco Cessation:Ready to Q uit: No Comments:i can/day x 5 years Alcohol Use Standard Drinks/Week Comments Not Currently 360 (1 standard drink = 0.6 oz p ure alcohol) once a week Sex and Gender Information Value Date Recorded Sex Assigned at Not on file Gender Identity Not on file Sexual Orientation Not on file Last Filed Vital Signs Vital Sign Reading Time Taken Comments Blood Pressure 138/91 09/13/2022 3:27 PM EDT Pulse 104 09/13/2022 3:27 PM EDT Temperature 36.9 C (98.4 F) 09/13/2022 3:27 PM EDT Respiratory Rate 20 03/10/2021 10:5 9 AM EDT Oxygen Saturation 97% 09/13/2022 3:27 PM EDT Inhaled Oxygen Concentration - - Weight 106.8 kg (235 lb 6.4 oz) 09/13/2022 3:27 PM EDT Height 177.8 cm (5' 10 ) 09/13/2022 3:27 PM EDT Body Mass Index 33.78 09/13/2022 3:27 PM EDT Plan of Treatment Health Maintenance Due Date Last Done Comments DTAP/TDAP/TD VACCINE (3 - Tdap) 12/20/2006 12/19/2006, 10/16/2002 ANNUAL WELLNESS EXAM 03/11/2021 03/10/2020, 03/11/2019, 03/23/2016 INFLUENZA VACCINE (#1) 2024 HEP C SCREENING Completed 04/27/2011 HEP A VACCINE Aged Out No longer elig ible based on patient's age to complete this topic HIB VACCINE Aged Out No longer eligi ble based on patient's age to complete this topic ROTOVIRUS VACCINE Aged Out No longer eligible based on patient's age to complete this topic Procedures Procedure Name Priority Date/Time Associated Diagnosis Comments HEPATITIS C ANTIBODY Today 04/27/2011 10:50 AM EST Acute prostatitis Dysuria from Last 3 Months or Most Recently Relevant to Health Maintenance Results * Hepatitis C Antibody (04/27/2011 10:50 AM EST) HEPATITIS C AB NEGATIVE Negative [facility] 04/27/2011 10:5 0 AM EST 04/27/2011 12:29 PM EST Nikolay Lockhart MD CHEMISTRY ORDERABLES [facility] [address] [place] [address] from Last 3 Months or Most Recently Relevant to Health Maintenance Additional Health Concerns Infection Onset Date Last Indicated MRSA 05/18/2012 05/18/2012 Advance Directives * Full Code (Latest Code Status on File) Date Activated Date Inactivated Comments 03/06/2021 11:15 AM 03/10/2021 6:06 PM Care Teams Food Preparation Kitchen Aide Relationship Specialty Start Date End Date Nikolay Lockhart MD [address] [facility] [place] [address] PCP - General Family Medicine 07/18/12
--- OUTSIDE RECORDS SUMMARY | 2024-09-04 16:20 | XMS_ITS | Clinical Summary ---
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 Name Role Phone Nikolay Lockhart MD Primary Care Provider [phone] Allergies No known active allergies Medications No known medications Active Problems Problem Noted Date Diagnosed Date Infection of bone, shoulder region 01/07/2013 Family History Medical History Relation Name Comments Hypertension Father Other - Specify Father Kidney stone s Relation Name Status Comments Father Alive Mother Alive Social History Tobacco Use Types Packs/Day Years Used Date Smoking Tobacco: Some Days Cigarettes Smokeless Tobacco: Current Chew Alcohol Use Standard Drinks/Week Comments No 0 (1 standard drink = 0.6 oz pur e alcohol) Sex and Gender Information Value Date Recorded Sex Assigned at Not on file Legal Sex Male 10:46 AM EDT Gender Identity Not on file Sexual Orientation Not on file Last Filed Vital Signs Vital Sign Reading Time Taken Comments Blood Pressure 112/74 07/31/2013 1:37 PM EST Pulse 60 07/31/2013 1:37 PM EST Temperature 36.8 C (98.3 F) 01/21/2013 3:27 PM EDT Respiratory Rate 12 07/31/2013 1:37 PM EST Oxygen Saturation 100% 01/21/2013 3:27 PM EDT Inhaled Oxygen Concentration - - Weight 99.3 kg (219 lb) 07/31/2013 1:37 PM EST Height 172.7 cm (5' 8 ) 07/31/2013 1:37 PM EST Body Mass Index 33.3 07/31/2013 1:37 PM EST Plan of Treatment Health Maintenance Due Date Last Done Comments HEPATITIS C VIRUS SCREENING 1991 TETANUS 1991 HIV SCREENING DISCUSSION 2006 HEP B VACCINE (1 of 3 - 19+ 3-dose series) 2010 TDAP (ADULT) 2010 COVID-19 VACCINE (2023-2 5 season) 2024 INFLUENZA VACCINE (#1) 2024 HPV VACCINE Aged Out No longer eligi ble based on patient's age to complete this topic PNEUMOCOCCAL VACCINE SERIES Aged Out No longer eligible based on patient's age to complete this topic Insurance [employer] Care Teams Crochet Machine Operator Relationship Specialty Start Date End Date Nikolay Lockhart MD PCP - General Family Medicine 01/07/13
== END 2024-09-04 15:19 | disposition home or self-care (01) ==
PROVIDERS: Emergency Provider Nurse Practitioner Family
DX: L03.113 Cellulitis of right upper limb (principal); Z23 Encounter for immunization
CPT/HCPCS: 90471; 90715; 99213; G0463